=== PATIENT | male | born 1950 | race Caucasian/White ===

== ENCOUNTER 2022-09-16 16:30 | Emergency (ER) | payer OTHER ==
[~2022-09-16] VITALS: Ht 177.8 cm; Wt 77.0 kg
[2022-09-16 18:00] LABS: CLARITY,URINE TURBID (Clear); COLOR,URINE RED (Yellow); UA COLLECTION TYPE VOIDED
[2022-09-16 18:06] LABS: WBC,URINE NONE SEEN /HPF (0-4)
[2022-09-16 18:07] LABS: BACTERIA,URINE NONE SEEN /HPF (Neg); RBC,URINE TNTC /HPF (0-2); SQUAMOUS EPITHELIAL CELL,UR NONE SEEN /LPF (FEW)
[2022-09-16] MEDS ORDERED: acetaminophen 325mg tablet PO ONE (19:05)
[2022-09-16 19:39] LABS: CLARITY,URINE TURBID (Clear); COLOR,URINE RED (Yellow)
[2022-09-16 19:41] LABS: UA COLLECTION TYPE FOLEY CATH
[2022-09-16 19:59] LABS: BACTERIA,URINE 2+ /HPF (Neg); RBC,URINE TNTC /HPF (0-2); SQUAMOUS EPITHELIAL CELL,UR NONE SEEN /LPF (FEW); WBC,URINE 0-4 /HPF (0-4)
[2022-09-16] MEDS ORDERED: LIDOcaine 2% 10ml TOPICAL JELLY (Urojet) MM ONE (20:25)
[2022-09-16] MEDS ORDERED: iohexol 300mg/ml 100ml inj. ONE (20:27)
[2022-09-16 20:44] LABS: BASOPHILS # (AUTO) 0.1 X10'3 (0-0.2); BASOPHILS % (AUTO) 0.5 % (0-1); EOSINOPHILS % (AUTO) 0 % (0-6); HEMATOCRIT 37.7 % (42.0-52.0); HEMOGLOBIN 12.4 g/dl (14.0-17.9); LYMPHOCYTES # (AUTO) 0.7 X10'3 (1.1-4.8); LYMPHOCYTES % (AUTO) 4.7 % (21-51); MEAN CORPUSCULAR HGB CONC 32.9 g/dL (33.0-36.5); MEAN CORPUSCULAR VOLUME 88.1 FL (78-98); MEAN PLATELET VOLUME 7.3 FL (7.4-10.4); MONOCYTES # (AUTO) 0.6 X10'3 (0-0.9); MONOCYTES % (AUTO) 4.2 % (2-12); NEUTROPHILS % (AUTO) 90.6 % (42-75); PLATELET COUNT 286 X10'3 (140-440); RED BLOOD COUNT 4.28 X10'6 (4.70-6.10); RED CELL DISTRIBUTION WIDTH 14.9 % (11.5-14.5); WHITE BLOOD COUNT 14.4 X10'3 (4.5-11.0)
[2022-09-16 20:48] LABS: ALANINE AMINOTRANSFERASE 18 U/L (12-78); ALBUMIN 3.7 G/DL (3.4-5.0); ALKALINE PHOSPHATASE 87 IU/L (46-116); ANION GAP 7 (8-16); ASPARTATE AMINO TRANSFERASE 17 U/L (10-37); BILIRUBIN,TOTAL 0.4 MG/DL (0.1-1.0); BLOOD UREA NITROGEN 27 MG/DL (7-18); BUN/CREATININE RATIO 15.9 (5.4-32.0); CALCIUM 8.9 MG/DL (8.5-10.1); CHLORIDE 102 MMOL/L (99-107); GLUCOSE 132 MG/DL (70-104); POTASSIUM 4.8 MMOL/L (3.5-5.1); SODIUM 136 MMOL/L (135-145); TOTAL CARBON DIOXIDE 26.6 MMOL/L (24-32); TOTAL PROTEIN 7.5 G/DL (6.4-8.2); eGFR 40 ML/MIN
[2022-09-16] MEDS ORDERED: normal saline 1000ml 1,000 ML IV ONE (20:55)
[2022-09-16] MEDS ORDERED: CefTRIAXone/D5W-Rocephin 1gm 50 ML IV ONE (22:00)
[2022-09-16] MEDS ORDERED: CEPH250T PO (22:02)
[2022-09-16 22:41] VITALS: BP 121/78
== END 2022-09-16 22:42 | disposition home or self-care (01) ==
LOC: ER 16:31
DX: R33.9 Retention of urine, unspecified (principal); R31.9 Hematuria, unspecified; N39.0 Urinary tract infection, site not specified
CPT/HCPCS: 36415; 51702; 74176; 80053; 81001; 85025; 87088; 96365; 99285; J0696; J3490; J7030; A4338; A4340; A4353; A4358; Q9967

== ENCOUNTER 2022-09-17 18:09 | Emergency (ER) | payer OTHER ==
[~2022-09-17] VITALS: Ht 177.8 cm; Wt 62.9 kg
[~2022-09-17 18:09] MED LIST: CEPH250T PO
--- NOTE | 2022-09-17 20:56 | NUR ---
BRYANT CATHETER IRRIGATED WITH 20 CC NORMAL SALINE. NO CLOTS PRESENT. DRAINAGE AROUND THE BRYANT CATHETER INTO PTS BRIEF. BRYANT CATHETER BALLOON DEFLATED, CATHETER ADVANCED AND BALLOON INFLATED TO 20CC. BRYANT CATHETER IRRIGATED WITH 40CC. NO DRAINAGE AROUND THE CATHETER AT THIS TIME.
[2022-09-17] MEDS ORDERED: LIDOcaine 2% 10ml TOPICAL JELLY (Urojet) MM ONE (22:15)
--- NOTE | 2022-09-17 22:52 | NUR ---
BRYANT CATHETER CONTINUED TO LEAK. EXISTING BRYANT REMOVED AND NEW 3 WAY BRYANT REPLACED.
[2022-09-17 22:53] VITALS: BP 154/91
== END 2022-09-17 23:24 | disposition home or self-care (01) ==
LOC: ER 18:10
DX: T83.098A Other mechanical complication of other urinary catheter, initial encounter (principal); R33.9 Retention of urine, unspecified; R31.9 Hematuria, unspecified
CPT/HCPCS: 51702; 99284; J7030

== ENCOUNTER 2022-09-18 20:38 | Emergency (ER) | payer OTHER ==
[~2022-09-18] VITALS: Ht 177.8 cm; Wt 76.4 kg
[2022-09-18 21:35] VITALS: BP 121/83
[2022-09-18] MEDS ORDERED: acetaminophen 325mg tablet PO ONE (23:10)
== END 2022-09-18 23:38 | disposition home or self-care (01) ==
LOC: ER 20:39
DX: T83.098A Other mechanical complication of other urinary catheter, initial encounter (principal); Z88.5 Allergy status to narcotic agent
CPT/HCPCS: 51702; 99282; 99284

== ENCOUNTER 2022-09-19 22:18 | Emergency (ER) | payer OTHER ==
[~2022-09-19] VITALS: Ht 177.8 cm; Wt 76.4 kg
[2022-09-20 01:37] VITALS: BP 117/79
== END 2022-09-20 01:39 | disposition home or self-care (01) ==
LOC: ER 22:19
DX: T83.098S Other mechanical complication of other urinary catheter, sequela (principal); Z88.5 Allergy status to narcotic agent
CPT/HCPCS: 99281; J7030

== ENCOUNTER 2022-09-20 12:01 | Emergency (ER) | payer OTHER ==
[~2022-09-20] VITALS: Ht 177.8 cm; Wt 76.4 kg
[2022-09-20 12:34] VITALS: BP 118/79
== END 2022-09-20 14:22 | disposition home or self-care (01) ==
LOC: ER 12:02
DX: T83.9XXA Unspecified complication of genitourinary prosthetic device, implant and graft, initial encounter (principal); Z88.5 Allergy status to narcotic agent
CPT/HCPCS: 99281

== ENCOUNTER 2022-09-20 16:03 | Emergency (ER) | payer OTHER ==
[~2022-09-20] VITALS: Ht 177.8 cm; Wt 76.4 kg
[2022-09-20 16:30] VITALS: BP 115/76
== END 2022-09-20 19:00 | disposition home or self-care (01) ==
LOC: ER 16:04
DX: T83.9XXD Unspecified complication of genitourinary prosthetic device, implant and graft, subsequent encounter (principal); R31.9 Hematuria, unspecified; Z88.8 Allergy status to other drugs, medicaments and biological substances; Z79.899 Other long term (current) drug therapy; Y92.89 Other specified places as the place of occurrence of the external cause; Y84.6 Urinary catheterization as the cause of abnormal reaction of the patient, or of later complication, without mention of misadventure at the time of the procedure
CPT/HCPCS: 99284

== ENCOUNTER 2022-09-23 14:14 | Emergency (ER) | payer OTHER ==
[~2022-09-23] VITALS: Ht 182.9 cm; Wt 79.5 kg
[2022-09-23 14:40] VITALS: BP 139/85
[2022-09-23 16:57] LABS: BASOPHILS # (AUTO) 0.1 X10'3 (0-0.2); BASOPHILS % (AUTO) 0.7 % (0-1); EOSINOPHILS % (AUTO) 0.2 % (0-6); HEMATOCRIT 36.4 % (42.0-52.0); HEMOGLOBIN 12.1 g/dl (14.0-17.9); LYMPHOCYTES # (AUTO) 1.4 X10'3 (1.1-4.8); LYMPHOCYTES % (AUTO) 11.7 % (21-51); MEAN CORPUSCULAR HEMOGLOBIN 29.5 PG (27.0-31.0); MEAN CORPUSCULAR HGB CONC 33.2 g/dL (33.0-36.5); MEAN PLATELET VOLUME 7.4 FL (7.4-10.4); MONOCYTES # (AUTO) 0.9 X10'3 (0-0.9); MONOCYTES % (AUTO) 7.4 % (2-12); NEUTROPHILS # (AUTO) 9.3 X10'3 (1.8-7.7); PLATELET COUNT 316 X10'3 (140-440); RED BLOOD COUNT 4.09 X10'6 (4.70-6.10); RED CELL DISTRIBUTION WIDTH 15.2 % (11.5-14.5); WHITE BLOOD COUNT 11.6 X10'3 (4.5-11.0)
[2022-09-23 17:14] LABS: ALANINE AMINOTRANSFERASE 16 U/L (12-78); ALBUMIN 3.8 G/DL (3.4-5.0); ALKALINE PHOSPHATASE 83 IU/L (46-116); ANION GAP 11 (8-16); ASPARTATE AMINO TRANSFERASE 20 U/L (10-37); BILIRUBIN,TOTAL 0.6 MG/DL (0.1-1.0); BLOOD UREA NITROGEN 19 MG/DL (7-18); BUN/CREATININE RATIO 13.6 (5.4-32.0); CHLORIDE 99 MMOL/L (99-107); GLUCOSE 108 MG/DL (70-104); POTASSIUM 4.4 MMOL/L (3.5-5.1); SODIUM 135 MMOL/L (135-145); TOTAL CARBON DIOXIDE 25.3 MMOL/L (24-32); TOTAL PROTEIN 7.8 G/DL (6.4-8.2); eGFR 50 ML/MIN
[2022-09-23] MEDS ORDERED: OXYB5TAB16 PO (19:32)
[2022-09-23] MEDS ORDERED: oxybutynin 5mg tablet PO STA (19:39)
[2022-09-23] MEDS ORDERED: cephalexin 250mg capsule PO ONE (19:40)
== END 2022-09-23 20:24 | disposition home or self-care (01) ==
LOC: ER 14:15
DX: T83.098A Other mechanical complication of other urinary catheter, initial encounter (principal); R31.9 Hematuria, unspecified; Z88.8 Allergy status to other drugs, medicaments and biological substances; Z79.899 Other long term (current) drug therapy; Z79.2 Long term (current) use of antibiotics
CPT/HCPCS: 36415; 80053; 85025; 99284

== ENCOUNTER 2024-06-10 14:05 | Outpatient (CLI) | payer MEDICARE, MEDICAID ==
[~2024-06-10 14:05] MED LIST changes: -CEPH250T PO; +OXYB5TAB21 PO
== END 2024-06-10 23:59 | disposition home or self-care (01) ==
LOC: RAD 14:05
PROVIDERS: ATTEND Physician Assistant
DX: Z12.2 Encounter for screening for malignant neoplasm of respiratory organs (principal); F17.210 Nicotine dependence, cigarettes, uncomplicated
CPT/HCPCS: 71271

== ENCOUNTER 2024-12-09 18:48 | Emergency (ER) | payer MEDICARE, MEDICAID ==
[~2024-12-09] VITALS: Ht 175.3 cm; Wt 68.0 kg
[2024-12-09 18:54] VITALS: BP 158/100; PULSE 88; RESP 16; O2SAT 95
[2024-12-09] MEDS ORDERED: AMOX-117 PO (21:11)
--- NOTE | 2024-12-09 21:11 | Physician Documentation ---
History of Present Illness General Chief Complaint: Bite-animal Stated Complaint: DOG BITE Time Seen by MD: 20:20 History of Present Illness Initial Comments 74-year-old male who is status post dog bite to the left lower leg. He has two puncture wounds wound to the anterior distal 3rd agee and one to the proximal 1/3 calf. There was no obvious extravasation and there is no current bleeding. Wounds are both less than a half a cm. It is grossly neurologically intact with plantar flexion and dorsiflexion. EHL is intact. Patient was already investigated of the dog's vaccination records which she is reports are up-to-date. He is declining tetanus immunization. Medication Reconciliation Allergies: Uncoded Allergies: OPIOIDS (Allergy, Intermediate, MAKES SKIN CRAWL, 09/18/22) Scheduled Amox Tr/Potassium Clavulanate (Augmentin 875-125 Tablet), 1 TAB PO Q12H Oxybutynin Chloride (Oxybutynin Chloride), 1 TAB PO Q12H Past Medical History Past Medical History: Hematuria, UTI Past Surgical History: noncontributory Drug Use: none Lives In: Home Occupation: retired Review of Systems All Other Systems at this time: Reviewed and Negative Integumentary Dog bite Physical Exam Physical Exam Vital Signs: RN Vital Signs have been reviewed: Yes, Temperature: 97.8, Source: Temporal, Heart Rate: 88, Respiratory Rate: 16, BP: 158/100, Pulse Oximetry: 95, Weight: 68.000 Oxygen Flow Rate: 0 General Appearance: alert, WD/WN, mild distress Head: normal inspection Face: normal inspection Pupils/EOM/Fundus: PERRLA Respiratory: no respiratory distress Chest: no accessory muscle use Cardiovascular: regular rate, rhythm Extremities Two small puncture wounds to the left lower leg without extravasation. Grossly neurologically intact, EHL intact. Able to dorsiflex and plantar flex. Neurologic: oriented x4 Motor / Sensory: no motor deficit, no sensory deficit Psychiatric: normal mood/affect Skin: other (She was) Progress Results/Orders Results/Orders Orders - HIRO DALE General Nursing Order (12/09/24 ) Completed Orders - HIRO DALE Amox Tr/Potassium Clavulanate (Augmentin (12/09/24 21:15) Vital Signs 12/09/24 12/09/24 18:54 21:25 Temp 97.8 97.8 Pulse 88 Resp 16 B/P (MAP) 158/100 Pulse Ox 95 O2 Flow Rate 0 Medical Decision Making Differential Diagnosis 70-year-old male who is status post dog bite with a neighbor's dog who you reports is well vaccinated. Patient was declining tetanus immunization and x-r ay imaging. Discussed the risks alternatives and benefits to both and continues to decline. I respect his wishes. Puncture wounds to the lower leg require only Steri-Strips repair. Offered patient was a single staple however refuses in requesting a Steri-Strips after aggressive cleaning. The warrants were cleansed. Steri-Strips applied and sterile dressing applied. First dose Augmentin provided to the patient he understands strict instructions to seek 72 hour wound check follow up. All questions answered he was safely discharged in the emergency department. He understands the importance of following up with animal control. Departure Disposition: HOME / SELF CARE / HOMELESS Impression: Primary Impression: Dog bite Qualified Codes: W54.0XXA - Bitten by dog, initial encounter Condition: Stable Discharge Instructions: Animal Bite, Adult Additional Instructions: Tonight in the emergency department you had your wound irrigated and received 1st dose Augmentin. Please obtain prescription and take as directed for the next 10 days. Follow up with animal control and return to the emergency department for signs of infection. Thank you for visiting emergency department [facility]. Referrals: NO PRIMARY CARE PROVIDER (PCP) Prescriptions Amox Tr/Potassium Clavulanate (Augmentin 875-125 Tablet) 1 Each Tablet 1 TAB PO Q12H for 10 Days, #20 TAB Prov: HRIO DALE PAC 12/09/24 Education Educated: Patient Educated regarding: diagnosis, treatment Signature Scribe Signature: . Attestation: . HIRO DALE PAC December 09, 2024 21:11
[2024-12-09] MEDS: amox tr/potassium clavulanate 875/125mg TAB PO ONE (21:24)
[2024-12-09 21:25] VITALS: TEMP 97.8
== END 2024-12-09 21:33 | disposition home or self-care (01) ==
LOC: ER 18:48
DX: S81.832A Puncture wound without foreign body, left lower leg, initial encounter (principal); Z79.899 Other long term (current) drug therapy; W54.0XXA Bitten by dog, initial encounter; Y93.89 Activity, other specified; Y92.89 Other specified places as the place of occurrence of the external cause; Y99.8 Other external cause status
CPT/HCPCS: 99283; J7030; A6258; A6449